=== PATIENT | female | born 1985 | race American Indian/Alaskan Native ===

== ENCOUNTER 2021-07-02 13:20 | Outpatient (CLI) | payer SELFPAY ==
[2021-07-02 13:52] VITALS: BP 110/62
[2021-07-02] MEDS ORDERED: LACTATED RINGERS 1,000 ML IV ONE (13:57)
[2021-07-02 14:52] LABS: Bilirubin,Urine NEG (Negative); Blood,Urine NEG (Negative); Color,Urine Colorless (Yellow); Protein,Urine <15 mg/dL mg/dL (Negative); Urobilinogen,Urine < 2.0 mg/dL (<2.0)
[2021-07-02 14:53] LABS: RBC,Urine < 1.0 /HPF (0.0-6.0); WBC,Urine < 1.0 /HPF (0.0-6.0)
--- NOTE | 2021-07-02 15:24 | Ultrasound Report ---
ULTRASOUND OBSTETRIC LIMITED ULTRASOUND BIOPHYSICAL PROFILE INDICATION / CLINICAL INFORMATION: Estimated weight and FAY. COMPARISON: None available. FINDINGS: BREATHING MOVEMENT = 2 GROSS BODY MOVEMENT = 2 TONE = 2 QUALITATIVE AMNIOTIC FLUID VOLUME = 2 TOTAL BIOPHYSICAL SCORE = 8/8 HEART RATE (beats per minute): 143 AMNIOTIC FLUID INDEX (cm) = 13.8 (normal = 7-24 cm) PRESENTATION: Cephalic. Biparietal Diameter = 8.7 cm = 35.0 weeks.days Head Circumference = 30.4 cm = 33.5 weeks.days Abdominal Circumference = 32.9 cm = 36.5 weeks.days Femur Length = 7.2 cm = 37.0 weeks.days Average Ultrasound Age (AUA) = 35.4 weeks.days Estimated Weight in grams (if calculated): 2893 Estimated Weight Growth Percentile (if calculated): 55 ADDITIONAL FINDINGS: None. IMPRESSION: 1. Biophysical Score = 8/8 Signer Name: Aidan Tran MD Signed: 07/02/2021 3:20 PM Workstation Name: [id number]
== END 2021-07-02 15:28 | disposition home or self-care (01) ==
LOC: TRG 13:20 → APU 13:22 → TRG 15:28
PROVIDERS: ATTEND Obstetrics & Gynecology
DX: O36.8130 Decreased fetal movements, third trimester, not applicable or unspecified (principal); Z3A.36 36 weeks gestation of pregnancy
CPT/HCPCS: 59025; 76816; 76819; 81001

== ENCOUNTER 2021-07-24 14:11 | Outpatient (CLI) | payer SELFPAY ==
[2021-07-24 14:28] VITALS: BP 113/67
[2021-07-24] MEDS ORDERED: LACTATED RINGERS 500 ML IV ONE (15:15)
--- NOTE | 2021-07-24 15:57 | Ultrasound Report ---
ULTRASOUND OBSTETRIC LIMITED ULTRASOUND BIOPHYSICAL PROFILE INDICATION / CLINICAL INFORMATION: wellbeing. Clinical Gestational Age (GA) in weeks, days: 39, 2 TECHNIQUE: Transabdominal. COMPARISON: 07/02/2021 FINDINGS: BREATHING MOVEMENT = 0 GROSS BODY MOVEMENT = 2 TONE = 2 QUALITATIVE AMNIOTIC FLUID VOLUME = 2 TOTAL BIOPHYSICAL SCORE = 6/8 HEART RATE (beats per minute): 141 AMNIOTIC FLUID INDEX (cm) = 18 (normal = 7-24 cm) PRESENTATION: Cephalic. ADDITIONAL FINDINGS: None. IMPRESSION: 1. Biophysical Score = 6/8 Signer Name: Julio Etienne MD Signed: 07/24/2021 3:53 PM Workstation Name: [email or web address]
== END 2021-07-24 16:36 | disposition home or self-care (01) ==
LOC: TRG 14:11 → APU 14:12 → TRG 16:36
PROVIDERS: ATTEND Obstetrics & Gynecology
DX: O36.8130 Decreased fetal movements, third trimester, not applicable or unspecified (principal); Z3A.39 39 weeks gestation of pregnancy
CPT/HCPCS: 59025; 76815; 76819

== ENCOUNTER 2021-08-04 14:28 | Inpatient (IN) | payer OTHER ==
[2021-08-04] MEDS ORDERED: CARBOPROST TROMETHAMINE 250 MCG/1 ML INJ IM PRN (18:10)
[2021-08-04] MEDS ORDERED: ONDANSETRON 4 MG/2 ML INJ IV PRN (18:10)
[2021-08-04] MEDS ORDERED: MINERAL OIL 30 ML ORAL LIQD PO PRN (18:10)
[2021-08-04] MEDS ORDERED: OXYTOCIN 10 UNIT/1 ML INJ IM PRN (18:10)
[2021-08-04] MEDS ORDERED: NalbUPHINE 10 MG/1 ML INJ IV PRN (18:10)
[2021-08-04] MEDS ORDERED: PROMETHAZINE 25 MG TAB PO PRN (18:10)
[2021-08-04] MEDS ORDERED: AMPICILLIN/NS 2 GM/100 ML 2 GM/100 ML BAG IV ONE (18:10)
[2021-08-04] MEDS ORDERED: miSOPROStol 200 MCG TAB PR PRN (18:10)
[2021-08-04] MEDS ORDERED: ePHEDrine SULFATE 50 MG/1 ML INJ IV PRN (18:10)
[2021-08-04] MEDS ORDERED: TERBUTALINE 1 MG/1 ML INJ SUB-Q PRN (18:10)
[2021-08-04] MEDS ORDERED: LOPERAMIDE 2 MG CAP PO PRN (18:10)
[2021-08-04] MEDS ORDERED: ACETAMINOPHEN 325 MG TAB PO PRN (18:10)
[2021-08-04] MEDS ORDERED: fentaNYL 100 MCG/2 ML INJ IV PRN (18:10)
[2021-08-04] MEDS ORDERED: METHYLERGONOVINE MALEATE 0.2 MG/ML VIAL IM PRN (18:10)
[2021-08-04] MEDS ORDERED: LIDOCAINE (2%) 20 MG/1 ML VIAL 20 ML MDV INFILTRATI ONE (18:10)
--- NOTE | 2021-08-04 18:18 | History and Physical Report ---
History of Present Illness Date of examination: 08/04/21 Date of admission: 08/04/21 Chief complaint: Leakage of fluid x2days History of present illness: at 40.6wks by LMP c/w U/S giving EDC 07/29/21 and care [facility]. Pt when asked gives history of anemia and syphilis and that she and her partner were treated in April 2021. Pt also states she has been leaking fluid for the past 2 days. Denies fever or chills or vag bleed. Pt declines epidural and wants only IV pain med. Pt admits to movement, or vag bleed or headache. Pt admits to feeling ctx Past History Past Medical History: other (Anemia, syphilis treated in 3rd trimester this preg, LOF 2days) Past Surgical History: no surgical history [employer] History: syphilis (2020) Social history: no significant social history - Obstetrical History Expected Date of Delivery: 07/29/21 Actual Gestation: 40 Week(s) 6 Day(s) : 2 Hx # Term Pregnancies: 1 Number of Living Children: 1 Medications and Allergies Allergies Allergy/AdvReac Type Severity Reaction Status Date / Time No Known Allergies Allergy Verified 08/04/21 15:38 Review of Systems All systems: negative (LOF x2days) - Vital Signs Vital signs: Vital Signs Pulse BP 89 118/69 08/04/21 15:08 08/04/21 15:08 Temp Pulse Resp BP Pulse Ox 98.2 F 73 16 118/69 99 08/04/21 15:23 08/04/21 17:20 08/04/21 15:23 08/04/21 15:23 08/04/21 17:20 - Physical Exam Breasts: Positive: deferred Cardiovascular: Regular rate Lungs: Positive: Normal air movement Abdomen: Positive: soft (non-tender, gravid) Genitourinary (Female): Positive: normal external genitalia Vulva: both: normal (no lesions) Vagina: Positive: normal moisture (without active leakage) Uterus: Positive: enlarged (non-tender, gravid) Extremities: Positive: normal - Obstetrical FHR: category 1 Uterine Contraction Monitor Mode: External Cervical Dilatation: 4 Cervical Effacement Percentage: 50 station: -2 Uterine Contraction Pattern: Irregular Uterine Contraction Intensity: Moderate Results Abnormal lab results 08/04/21 Range/Units Unknown Membranes Rupture Positive A (Negative) All other labs normal. Assessment and Plan Term IUP in latent labor, prolong rupture of membranes, H/O syphilis tx this preg in the 3rd trimester, now with BPP 6/8 due to oligo and positive ROM plus and GBS+ with exposure from pt remaining home with known LOF 1. Admit to labor and delivery, augment with pitocin and give Amp for GBS+ 2. Notify PEDs of recent tx of syphilis 3. May have IV pain med as desired and later epidural if she changes her mind 4. Plan of care discussed with risks, benefits and alternatives; all questions encouraged and answered; Expect
[2021-08-04] MEDS ORDERED: OXYTOCIN DRIP 30 UNITS/500 ML BAG IV SCH ×2 (19:00)
--- NOTE | 2021-08-04 19:02 | Ultrasound Report ---
ULTRASOUND BIOPHYSICAL PROFILE INDICATION / CLINICAL INFORMATION: positioning and wellbeing and FAY. COMPARISON: None available. FINDINGS: BREATHING MOVEMENT = 0 GROSS BODY MOVEMENT = 2 TONE = 2 QUALITATIVE AMNIOTIC FLUID VOLUME = 2 TOTAL BIOPHYSICAL SCORE = 8/8 AMNIOTIC FLUID INDEX (cm) = 2.2 PRESENTATION: Cephalic. HEART RATE (beats per minute): 153 IMPRESSION: 1. biophysical profile = 8 2. Oligohydramnios. 3. See above findings Signer Name: Doc Greene MD Signed: 08/04/2021 6:58 PM Workstation Name: [id number]
[2021-08-04] MEDS: LACTATED RINGERS 1,000 ML IV SCH ×2 (19:10→23:53)
[2021-08-04 19:46] LABS: Hematocrit 32.9 % (30.3-42.9); Mean Corpuscular HGB Conc 33 % (30-34); Mean Corpuscular Volume 89 fl (79-97); Platelet Count 107 K/mm3 (140-440); Red Blood Count 3.69 M/mm3 (3.65-5.03); Red Cell Distribution Width 14.6 % (13.2-15.2)
[2021-08-04 20:16] LABS: Alanine Aminotransferase 13 units/L (7-56); Albumin 3.4 g/dL (3.9-5); Blood Urea Nitrogen 6 mg/dL (7-17); Calcium 8.9 mg/dL (8.4-10.2); Hemolysis Index 11
[2021-08-04 20:21] LABS: BUN/Creatinine Ratio 15
[2021-08-04] MEDS ORDERED: AMPICILLIN/NS 1 GM/50 ML 1 GM/50 ML BAG IV SCH (22:30)
[2021-08-04] MEDS ORDERED: miSOPROStol 25 MCG TAB PO SCH (23:00)
--- NOTE | 2021-08-05 01:27 | Procedure Note ---
OB Delivery Note - Delivery Date of Delivery: 08/05/21 Surgeon: VANDANA SHAH Estimated blood loss: 300cc - Vaginal Delivery position: OA Intrapartum events: none, PROM->1hr before delivery Delivery induction: oxytocin Delivery monitor: external FHT, external uterine Route of delivery: Delivery placenta: spontaneous Delivery cord: nuchal cord, 3 umbilical vessels, other (Body cord x1) Episiotomy: none Delivery laceration: 2nd degree Delivery repair: vicryl Anesthesia: local - Infant A at 1 minute: 8 at 5 minutes: 9 Infant Gender: Male
[2021-08-05] MEDS ORDERED: ONDANSETRON 4 MG/2 ML INJ IV PRN (01:30)
[2021-08-05] MEDS ORDERED: MAGNESIUM HYDROXIDE (MOM) ORAL LIQD UDC PO PRN (01:30)
[2021-08-05] MEDS ORDERED: diphenhydrAMINE 25 MG CAP PO PRN (01:30)
[2021-08-05] MEDS ORDERED: LANOLIN/ZINC/DIMETHICONE (LANSINOH) 7 GM TP PRN (01:30)
[2021-08-05] MEDS ORDERED: HYDROcodone/ACETAMINOPHEN 5-325 MG TAB PO PRN (01:30)
[2021-08-05] MEDS ORDERED: PROMETHAZINE 25 MG TAB PO PRN (01:30)
[2021-08-05] MEDS ORDERED: BENZOCAINE/MENTHOL 20/0.5% TOP SPRAY 56 GM TP PRN (01:30)
[2021-08-05] MEDS ORDERED: WITCH HAZEL/ GLYCERIN PAD TP PRN (01:30)
[2021-08-05] MEDS ORDERED: ACETAMINOPHEN 325 MG TAB PO PRN (01:30)
[2021-08-05] MEDS ORDERED: METHYLERGONOVINE MALEATE 0.2 MG/ML VIAL IM ONE ×2 (01:41→01:48)
[2021-08-05] MEDS: IBUPROFEN 800 MG TAB PO SCH ×3 (03:45→23:55)
[2021-08-05 04:47] LABS: Hemoglobin 12.8 gm/dl (10.1-14.3); Mean Corpuscular HGB Conc 35 % (30-34); Mean Corpuscular Volume 89 fl (79-97); Platelet Count 125 K/mm3 (140-440); Red Blood Count 4.16 M/mm3 (3.65-5.03); Red Cell Distribution Width 14.6 % (13.2-15.2)
--- NOTE | 2021-08-05 08:46 | Event Note ---
Date: 08/05/21 pt seen and doing well after having her baby earlier this morning. pt has no complaints and vag bleed like a period.
[2021-08-05] MEDS: DOCUSATE SODIUM 100 MG CAP PO SCH ×2 (13:07→22:01)
[2021-08-06] MEDS: IBUPROFEN 800 MG TAB PO SCH ×4 (05:56→23:17)
[2021-08-06] MEDS: DOCUSATE SODIUM 100 MG CAP PO SCH ×2 (10:13→23:17)
--- NOTE | 2021-08-06 11:05 | Progress Note ---
Assessment and Plan A: PP Day #1 Reactive RPR (Titer 1:1) P: Follow Routine Orders D/C home in the AM RTO in 6 Weeks Subjective - Subjective Date of service: 08/06/21 Patient reports: appetite normal, voiding normally, pain well controlled, flatus, ambulating normally [place]: doing well, bottle feeding (and ) Objective - Vital Signs Latest vital signs: Vital Signs Temp Pulse Resp BP BP Pulse Ox Pulse Ox 08/06/21 08:55 98 F 61 20 105/58 99 08/06/21 08:45 99 08/06/21 05:54 97 08/06/21 03:30 98 08/06/21 01:30 97 08/06/21 01:05 98.5 F 69 20 101/57 97 08/05/21 23:55 97 08/05/21 22:00 98 08/05/21 19:45 98 08/05/21 15:55 98.4 F 64 18 108/53 98 Intake and Output 08/05/21 08/06/21 08/06/21 22:59 06:59 14:59 Intake Total 560 360 320 Balance 560 360 320 Intake: Oral 560 360 320 Other: Total, Intake Amount 120 120 320 # Voids Void 1 1 1 - Exam Breasts: Present: normal Cardiovascular: Present: Regular rate Lungs: Present: Clear to auscultation, Normal air movement Abdomen: Present: normal appearance, soft, normal bowel sounds Uterus: Present: normal, firm, fundal height below umbilicus Extremities: Present: normal
--- NOTE | 2021-08-06 11:07 | Discharge Summary ---
Providers - Providers Date of Admission: 08/04/21 18:10 Date of discharge: 08/07/21 Attending physician: JUAN JOHNSON Primary care physician: JUAN JOHNSON Hospitalization Reason for admission: active labor Delivery: Episiotomy: none Laceration: 2nd degree Other procedures: none complications: none Discharge diagnosis: IUP at term delivered baby: male Condition at discharge: Good Disposition: 01 HOME / SELF CARE / HOMELESS Plan - Provider Discharge Summary Activity: routine, no sex for 6 weeks, no heavy lifting 4 weeks, no strenuous exercise Diet: routine Instructions: routine Additional instructions: [] Smoking cessation referral if applicable(refer to patient education folder for contact #) [] Refer to [facility]'s [facility] Booklet Call your doctor immediately for: * Fever > 100.5 * Heavy vaginal bleeding ( >1 pad per hour) * Severe persistent headache * Shortness of breath * Reddened, hot, painful area to leg or breast * Drainage or odor from incision. * Keep incision clean and dry at all times and follow doctor's instructions regarding bathing/showering - Follow up plan Follow up: JUAN JOHNSON MD [Primary Care Provider] - 6 Weeks
[2021-08-07] MEDS: IBUPROFEN 800 MG TAB PO SCH (05:09)
[2021-08-07 18:39] VITALS: BP 105/62
== END 2021-08-07 18:55 | disposition home or self-care (01) | DRG 807 ==
LOC: TRG 14:28 → APU 14:29 → LD 18:20 → TRG 18:21 → LD 18:24 → OB 08-05 02:33
PROVIDERS: ADMIT Obstetrics & Gynecology; ATTEND Obstetrics & Gynecology
PROC: 0KQM0ZZ Repair Perineum Muscle, Open Approach (ICD-10-PCS; principal; 2021-08-05)
PROC: 10E0XZZ Delivery of Products of Conception, External Approach (ICD-10-PCS; 2021-08-05)
PROC: 3E033VJ Introduction of Other Hormone into Peripheral Vein, Percutaneous Approach (ICD-10-PCS; 2021-08-05)
DX: O42.02 Full-term premature rupture of membranes, onset of labor within 24 hours of rupture (principal); Z37.0 Single live birth; Z3A.40 40 weeks gestation of pregnancy; Z20.822 Contact with and (suspected) exposure to COVID-19; O99.824 Streptococcus B carrier state complicating childbirth; O69.81X0 Labor and delivery complicated by cord around neck, without compression, not applicable or unspecified; O70.1 Second degree perineal laceration during delivery
CPT/HCPCS: 36415; 76815; 76819; 80053; 84112; 85027; 86592; 86593; 86780; 86850; 86900; 86901; 96365; G0378; J3490; J0290; J2210; J2590; J3010; J7120; U0003